=== PATIENT | male | born 1940 | race Caucasian/White ===

== ENCOUNTER 2024-12-21 12:31 | Emergency (ER) | payer MEDICARE, OTHER, SELFPAY ==
[2024-12-21 12:37] VITALS: BP 190/91; PULSE 98; RESP 20; TEMP 36.2; O2SAT 98; BMI 24.0
--- NOTE | 2024-12-21 12:43 | EKG_ITS ---
[address] [address] Test Date: 2024-12-21 Pat Name: Naren Gutiérrez Department: [facility] Room: Gender: Male Income Tax Consultant: VICKEY : 1940 Requested By: Order Number: [id number] Reading MD: Maurilio Thurston Measurements Intervals [place] Rate: 86 P: 66 MA: 162 QRS: -35 QRSD: 86 T: 53 QT: 376 QTc: 449 Interpretive Statements Poor data quality, interpretation may be adversely affected Sinus rhythm with premature atrial complexes with aberrant conduction Left axis deviation Cannot rule out Anterior infarct , age undetermined Electronically Signed On 12-21-2024 18:21:37 PST by Maurilio Thurston
[2024-12-21 13:09] LABS: Add Manual Diff / Slide Review NO; Basophils Absolute Auto 100 /uL (0-100); Basophils Percent Auto 1.2 % (0-2); Eosinophils Absolute Auto 0 /uL (0-450); Eosinophils Percent Auto 0.3 % (2-4); Hematocrit 45.4 % (41-53); Hemoglobin 15.7 g/dL (13.5-17.5); Lymphocytes Absolute Auto 1600 /uL (1100-4500); Lymphocytes Percent Auto 17.1 % (25-40); Mean Corpuscular HGB Conc 34.6 % (30-36); Mean Corpuscular Hemoglobin 30.9 PG (26-34); Mean Corpuscular Volume 89.3 fL (80-100); Monocytes Absolute Auto 600 /uL (0-900); Monocytes Percent Auto 6.7 % (3-14); Neutrophils Absolute Auto 6800 /uL (1500-7000); Neutrophils Percent Auto 74.7 % (50-75); Platelet Count 334 X10^3/uL (150-400); Red Blood Cell Count 5.08 X10^6/uL (4.5-5.9); Red Cell Distribution Width 13.3 % (11.6-14.8); White Blood Cell Count 9.1 X10^3/uL (4.5-11.0)
[2024-12-21 13:17] LABS: Alanine Aminotransferase 32 IU/L (<50); Albumin 4.8 g/dL (3.5-5.0); Albumin Globulin Ratio 1.6 (1.0-2.8); Alkaline Phosphatase 82 U/L (38-126); Aspartate Aminotransferase 34 IU/L (17-59); BUN Creatinine Ratio 16.9 (6-22); Blood Urea Nitrogen 13 mg/dL (9-20); Calcium 9.6 mg/dL (8.4-10.2); Carbon Dioxide 20 mmol/L (22-32); Chloride 100 mmol/L (98-107); Estimated Glomerular Filt Rate > 60 mL/min (>60); Glucose 198 mg/dL (80-110); HEMOLYSIS 17 (0-50); Lipase 69 U/L (23-300); Potassium 3.9 mmol/L (3.4-5.1); Sodium 132 mmol/L (137-145); Total Protein 7.8 g/dL (6.3-8.2)
--- NOTE | 2024-12-21 14:45 | DI.RAD.S_ITS ---
PROCEDURE: XR ABDOMEN 1V INDICATIONS: r/o obstruction TECHNIQUE: One view of the abdomen acquired. COMPARISON: [facility], CR, XR ABDOMEN 1 VIEW, 12/14/2024, 13:58. Findings and impression: Moderate to large fecal loading. There are no specific radiographic signs for bowel obstruction. No suspicious abdominal calcifications. Osseous degenerative changes. Dictated by: Vargas Sanderson M.D. on 12/21/2024 at 15:08 Approved by: Vargas Sanderson M.D. on 12/21/2024 at 15:08
--- NOTE | 2024-12-21 16:31 | DI.CT.S_ITS ---
PROCEDURE: CT ABDOMEN PELVIS W CON INDICATIONS: abd pain, constipation TECHNIQUE: After the administration of intravenous contrast, axial sections acquired from the lung bases to the pubic symphysis. Coronal and sagittal reformats were performed. For radiation dose reduction, the following was used: automated exposure control, adjustment of mA and/or kV according to patient size. COMPARISON: None. FINDINGS: Image quality: Diagnostic. Lower Chest: No significant findings. ABDOMEN: Liver: No solid mass. Mild diffuse hepatic steatosis. Gallbladder: Gallbladder distension. Possible subtle noncalcified gallstones. Biliary ducts: No biliary dilation. Pancreas: No ductal dilation. Spleen: Size is within normal limits. Adrenal Glands: No adrenal nodules. Kidneys and Ureters: No hydronephrosis. No solid mass. No complex renal cystic lesion which requires follow up. Stomach and Bowel: Normal colonic caliber, without significant wall thickening. Moderately large fecal load. Sigmoid diverticulosis without evidence of acute diverticulitis. Peritoneum: No abnormal intraperitoneal fluid. No free air. Ventral Wall: No significant ventral hernia. Abdominal Nodes: No retroperitoneal or mesenteric adenopathy by size criteria. Vessels: Aorta and inferior vena cava are normal in size. PELVIS: Pelvic Organs: Unremarkable. Bladder: No bladder wall thickening, accounting for underdistention. Pelvic Nodes: No enlarged lymph nodes. Miscellaneous: No inguinal hernias are seen. Bones: No aggressive osseous abnormality. IMPRESSION: 1. Distended gallbladder with possible gallstones. 2. Moderately large fecal load. 3. Diverticulosis. Dictated by: Jesus Machado M.D. on 12/21/2024 at 17:20 Approved by: Jesus Machado M.D. on 12/21/2024 at 17:22
--- NOTE | 2024-12-21 16:41 | ED_ITS ---
HPI - Abdominal Pain <Lisa Lewis PA-C - Last Filed: 01/04/25 11:27> General Chief Complaint: Abdominal Pain Stated Complaint: Constipation, nausea, lightheaded Time Seen by Provider: 12/21/24 15:42 Source: patient Mode of arrival: Ambulatory History of Present Illness HPI narrative: 84-year-old male with hypertension presents to the ED with worsening constipation for the last 3 weeks. Patient states that he has had constipation since the start of November. Patient states that he does not have a history of constipation and was very regular up until then. Patient states he took some senna and docusate, after which he had a small bowel movement this morning. Patient endorses that it was very difficult to pass the small, hard stool. Patient states that he has been overall very uncomfortable due to this. Patient does not complain of abdominal pain per se, however states that the discomfort wakes him up at night and prevents a good night's sleep. Denies fever, chills, chest pain, shortness of breath, lightheadedness, dizziness, syncope. Patient does endorse some nausea and anorexia. No vomiting. Patient was seen by his doctor recently, asked to take laxatives and go to the ED if his symptoms did not improve in a week. Related Data Home Medications Medication Instructions Recorded Confirmed amlodipine 2.5 mg tablet 2.5 mg PO DAILY 06/15/23 06/15/23 gabapentin 100 mg capsule mg PO 06/15/23 06/15/23 metoprolol tartrate 25 mg tablet 25 mg PO BID 06/15/23 06/15/23 Allergies Allergy/AdvReac Type Severity Reaction Status Date / Time No Known Drug Allergies Allergy Verified 06/15/23 07:23 Review of Systems <Lisa Lewis PA-C - Last Filed: 01/04/25 11:27> Constitutional Constitutional: Denies chills, Denies fatigue, Denies fever(s), Denies frequent falls, Denies lethargy, Reports poor appetite and Denies weakness Eyes Eyes: Denies change in vision, Denies eye discharge, Denies irritation and Denies loss of vision ENT Ears, Nose, Mouth, and Throat: Denies change in voice, Denies dizziness, Denies neck pain, Denies sore throat and Denies throat swelling Cardiovascular Cardiovascular: Denies chest pain, Denies irregular heart rhythm, Denies lightheadedness, Denies palpitations, Denies dyspnea, Denies dyspnea on exertion and Denies orthopnea Respiratory Respiratory: Denies cough, Denies dyspnea, Denies dyspnea on exertion and Denies wheezing Gastrointestinal Gastrointestinal: Reports abdominal pain, Denies change in bowel habits, Reports constipation, Denies diarrhea, Reports nausea and Denies vomiting Musculoskeletal Musculoskeletal: Denies neck pain and Denies numbness Integumentary/Breasts Skin/Breast: Denies pruritus, Denies erythema, Denies rash and Denies wounds Neurologic Neurologic: Denies behavioral changes, Denies confusion, Denies dizziness, Denies frequent falls, Denies loss of vision, Denies numbness and Denies weakness Psychiatric Psychiatric: Denies anxiety, Denies behavioral changes, Denies confusion, Denies depression, Denies homicidal ideation and Denies suicidal ideation Endocrine Endocrine: Denies fatigue, Denies flushing and Denies palpitations Hematologic/Lymphatic Hematologic/Lymphatic: Denies easy bruising Allergic/Immunologic Allergic/Immunologic: Denies urticaria, Denies throat swelling and Denies wheezing Patient History <Lisa Lewis PA-C - Last Filed: 01/04/25 11:27> Social History Smoking Status: Never smoker Smoking Status: Never smoker Exam <Lisa Lewis PA-C - Last Filed: 01/04/25 11:27> Narrative Exam Narrative: Const General:?cooperative, healthy appearing and comfortable [facility] Head:?normal to inspection Ears:?hearing grossly normal bilaterally Nose:?external nose normal Face and sinus:?normal facial exam and sinuses nontender Mouth:?oral mucosae normal Throat:?posterior oropharynx normal Eyes General:?appearance normal, both eyes and all related structures Neck Neck:?normal visual inspection and no lymphadenopathy noted Resp Effort & Inspection:?normal respiratory effort Auscultation:?clear to auscultation bilaterally Cardio Rate:?regular rate Rhythm:?regular rhythm GI Abdomen is soft, nondistended. There is tenderness to palpation in the epigastric, RUQ regions. Neuro General:?patient alert, patient awake and patient oriented x3 Initial Vital Signs Initial Vital Signs: Vital Signs Temperature 97.1 F L 12/21/24 12:37 Pulse Rate 98 H 12/21/24 12:37 Respiratory Rate 20 12/21/24 12:37 Blood Pressure 190/91 H 12/21/24 12:37 Pulse Oximetry 98 01/27/25 12:37 Oxygen Delivery Method Room Air 12/21/24 12:37 <Skylar Nino DO - Last Filed: 01/05/25 03:36> Initial Vital Signs Initial Vital Signs: Vital Signs Temperature 97.1 F L 12/21/24 12:37 Pulse Rate 98 H 12/21/24 12:37 Respiratory Rate 20 12/21/24 12:37 Blood Pressure 190/91 H 12/21/24 12:37 Pulse Oximetry 98 12/21/24 12:37 Oxygen Delivery Method Room Air 12/21/24 12:37 Course <Lisa Lewis PA-C - Last Filed: 01/04/25 11:27> Orders Ordered: Discontinued Medications Magnesium Citrate (Magnesium Citrate 300 Ml Solution) 300 ml PO NOW ONE Stop: 12/21/24 18:39 Last Admin: 12/21/24 18:57 Dose: 300 ml Documented By: SPF Metoclopramide HCl (Metoclopramide 10 Mg/2 Ml Inj) 10 mg IV NOW ONE Stop: 12/21/24 17:58 Last Admin: 12/21/24 18:45 Dose: 10 mg Documented By: SPF Mineral Oil (Mineral Oil 1 Each Enema) 1 each TN NOW ONE Stop: 12/21/24 16:33 Last Admin: 12/21/24 17:11 Dose: 1 each Documented By: SPF Ondansetron HCl (Ondansetron 4 Mg/2 Ml Inj) 4 mg IV NOW PRN PRN Reason: Nausea And Vomiting Ondansetron HCl (Ondansetron 4 Mg Odt) 4 mg PO NOW PRN PRN Reason: Nausea And Vomiting Vital Signs Vital signs: Vital Signs - 8 hr 12/21/24 12:37 12/21/24 17:21 Temperature 97.1 F L Pulse Rate 98 H 94 H Respiratory Rate 20 14 Blood Pressure 190/91 H 158/85 H Pulse Oximetry 98 96 Oxygen Delivery Method Room Air Room Air <Skylar Nino DO - Last Filed: 01/05/25 03:36> Orders Ordered: Discontinued Medications Magnesium Citrate (Magnesium Citrate 300 Ml Solution) 300 ml PO NOW ONE Stop: 12/21/24 18:39 Last Admin: 12/21/24 18:57 Dose: 300 ml Documented By: SPF Metoclopramide HCl (Metoclopramide 10 Mg/2 Ml Inj) 10 mg IV NOW ONE Stop: 12/21/24 17:58 Last Admin: 12/21/24 18:45 Dose: 10 mg Documented By: SPF Mineral Oil (Mineral Oil 1 Each Enema) 1 each TN NOW ONE Stop: 12/21/24 16:33 Last Admin: 12/21/24 17:11 Dose: 1 each Documented By: SPF Ondansetron HCl (Ondansetron 4 Mg/2 Ml Inj) 4 mg IV NOW PRN PRN Reason: Nausea And Vomiting Ondansetron HCl (Ondansetron 4 Mg Odt) 4 mg PO NOW PRN PRN Reason: Nausea And Vomiting Vital Signs Vital signs: Vital Signs - 8 hr 12/21/24 12:37 12/21/24 17:21 Temperature 97.1 F L Pulse Rate 98 H 94 H Respiratory Rate 20 14 Blood Pressure 190/91 H 158/85 H Pulse Oximetry 98 96 Oxygen Delivery Method Room Air Room Air MDM - Abdominal Pain <Lisa Lewis PA-C - Last Filed: 01/04/25 11:27> Lab Data 12/21/24 12:50 12/21/24 12:50 Labs: Lab Results 12/21/24 Range/Units 12:50 WBC 9.1 (4.5-11.0) X10^3/uL RBC 5.08 (4.5-5.9) X10^6/uL Hgb 15.7 (13.5-17.5) g/dL Hct 45.4 (41-53) % MCV 89.3 (80-100) fL MCH 30.9 (26-34) PG MCHC 34.6 (30-36) % RDW 13.3 (11.6-14.8) % Plt Count 334 (150-400) X10^3/uL Neut % (Auto) 74.7 (50-75) % Lymph % (Auto) 17.1 L (25-40) % [place] % (Auto) 6.7 (3-14) % Eos % (Auto) 0.3 L (2-4) % Baso % (Auto) 1.2 (0-2) % Neut # (Auto) 6800 (4380-8803) /uL Lymph # (Auto) 1600 (7499-0435) /uL [place] # (Auto) 600 (0-900) /uL Eos # (Auto) 0 (0-450) /uL Baso # (Auto) 100 (0-100) /uL Sodium 132 L (137-145) mmol/L Potassium 3.9 (3.4-5.1) mmol/L Chloride 100 (98-107) mmol/L Carbon Dioxide 20 L (22-32) mmol/L BUN 13 (9-20) mg/dL Creatinine 0.77 (0.66-1.25) mg/dL Estimated GFR > 60 (>60) mL/min BUN/Creatinine Ratio 16.9 (6-22) Glucose 198 H (80-110) mg/dL Calcium 9.6 (8.4-10.2) mg/dL Total Bilirubin 1.0 (0.2-1.3) mg/dL AST 34 (17-59) IU/L ALT 32 (<50) IU/L Alkaline Phosphatase 82 (38-126) U/L Total Protein 7.8 (6.3-8.2) g/dL Albumin 4.8 (3.5-5.0) g/dL Globulin 3.0 (1.7-4.1) g/dL Albumin/Globulin Ratio 1.6 (1.0-2.8) Lipase 69 (23-300) U/L MDM Narrative Medical decision making narrative: 84-year-old male with hypertension presents to the ED with worsening constipation for the last 3 weeks. Concern for bowel obstruction versus constipation versus biliary etiology versus other intra-abdominal pathology versus other. Will obtain labs, CT abdomen pelvis, ultrasound abdomen. Will give an enema for the constipation. Glucose elevated to 198, labs otherwise unremarkable. CT scan shows a distended gallbladder with possible gallstones. Moderately large fecal load. Diverticulosis. Abdominal ultrasound shows gallbladder sludge, no evidence of acute cholecystitis. Patient did not have success with the enema given in the ED. Patient is sent home with magnesium citrate. Counseled patient on bowel regimen, nightly MiraLax. Recommend follow-up with PCP. ED return precautions were discussed with patient. Patient verbalized understanding. Medical records reviewed: Yes <Skylar Nino DO - Last Filed: 01/05/25 03:36> Lab Data Labs: Lab Results 12/21/24 Range/Units 12:50 WBC 9.1 (4.5-11.0) X10^3/uL RBC 5.08 (4.5-5.9) X10^6/uL Hgb 15.7 (13.5-17.5) g/dL Hct 45.4 (41-53) % MCV 89.3 (80-100) fL MCH 30.9 (26-34) PG MCHC 34.6 (30-36) % RDW 13.3 (11.6-14.8) % Plt Count 334 (150-400) X10^3/uL Neut % (Auto) 74.7 (50-75) % Lymph % (Auto) 17.1 L (25-40) % [place] % (Auto) 6.7 (3-14) % Eos % (Auto) 0.3 L (2-4) % Baso % (Auto) 1.2 (0-2) % Neut # (Auto) 6800 (9672-9455) /uL Lymph # (Auto) 1600 (2486-8814) /uL [place] # (Auto) 600 (0-900) /uL Eos # (Auto) 0 (0-450) /uL Baso # (Auto) 100 (0-100) /uL Sodium 132 L (137-145) mmol/L Potassium 3.9 (3.4-5.1) mmol/L Chloride 100 (98-107) mmol/L Carbon Dioxide 20 L (22-32) mmol/L BUN 13 (9-20) mg/dL Creatinine 0.77 (0.66-1.25) mg/dL Estimated GFR > 60 (>60) mL/min BUN/Creatinine Ratio 16.9 (6-22) Glucose 198 H (80-110) mg/dL Calcium 9.6 (8.4-10.2) mg/dL Total Bilirubin 1.0 (0.2-1.3) mg/dL AST 34 (17-59) IU/L ALT 32 (<50) IU/L Alkaline Phosphatase 82 (38-126) U/L Total Protein 7.8 (6.3-8.2) g/dL Albumin 4.8 (3.5-5.0) g/dL Globulin 3.0 (1.7-4.1) g/dL Albumin/Globulin Ratio 1.6 (1.0-2.8) Lipase 69 (23-300) U/L Discharge Plan Departure Patient Disposition: Home Clinical Impression: Constipation Instructions: DI for Constipation Activity Restrictions/Additional Instructions: You were evaluated in the ED today for abdominal discomfort and constipation. Your CT scan and ultrasound showed a somewhat distended gallbladder, however no emergent findings. The CT scan did show a large stool load. Your symptoms are likely due to constipation. Please take the magnesium citrate that you are being sent home with at home, with a bathroom nearby, since it asks quickly. Please continue to take MiraLax nightly. Please keep up good hydration and fiber intake. Please follow-up with your PCP as soon as possible. Return to the ED if you have any worsening symptoms. Prescriptions: No Action metoprolol tartrate 25 mg tablet 25 mg PO BID amlodipine 2.5 mg tablet 2.5 mg PO DAILY gabapentin 100 mg capsule PO Referrals: Miscellaneous,Doctor, MD [Primary Care Provider] - Stand Alone Forms: Patient Portal/API/Survey ED Sign-out <Skylar Nino DO - Last Filed: 01/05/25 03:36> Cosign ED Attending Cosignature Attestation: I was available for consultation.
[2024-12-21] MEDS: MINERAL OIL 1 EACH ENEMA PR (17:11)
[2024-12-21 17:21] VITALS: BP 158/85; PULSE 94; RESP 14; O2SAT 96
--- NOTE | 2024-12-21 17:40 | DI.US.S_ITS ---
PROCEDURE: US ABDOMEN LIMITED INDICATIONS: RUQ pain, CT w/ distended GB and possible stones TECHNIQUE: Real-time scanning was performed of the abdominal and retroperitoneal organs, with image documentation. COMPARISON: [facility], CT, CT ABDOMEN PELVIS W CON, 12/21/2024, 16:39. FINDINGS: Liver: Increased echogenicity, likely steatosis. Gallbladder: Gallbladder sludge. No significant wall thickening. No pericholecystic edema. Negative sonographic Conteh's sign. Biliary ducts: Intrahepatic bile ducts are non-dilated. Extrahepatic bile duct not well seen due to bowel gas. Pancreas: Not visualized due to bowel gas. Miscellaneous: No free abdominal fluid. IMPRESSION: Gallbladder sludge. No evidence of acute cholecystitis. Dictated by: Tom Sears M.D. on 12/21/2024 at 18:43 Approved by: Tom Sears M.D. on 12/21/2024 at 18:44
[2024-12-21] MEDS: METOCLOPRAMIDE 10 MG/2 ML INJ IV (18:45)
[2024-12-21] MEDS: MAGNESIUM CITRATE 300 ML SOLUTION PO (18:57)
[2024-12-21 19:07] VITALS: BP 171/85; PULSE 98; RESP 15; O2SAT 97
== END 2024-12-21 19:09 | disposition home or self-care (01) ==
PROVIDERS: Emergency Medicine; Emergency Provider Student in an Organized Health Care Education/Training Program
DX: K59.00 Constipation, unspecified (principal); R10.9 Unspecified abdominal pain; R11.0 Nausea; I10 Essential (primary) hypertension
CPT/HCPCS: 36415; 74018; 74177; 76705; 80053; 83690; 85025; 93005; 96374; 99284; 99285; J2405; J2765; Q9967